=== PATIENT | female | born 1975 | race Caucasian/White ===

== ENCOUNTER 2016-07-12 21:04 | Emergency (ER) | payer MEDICAID ==
[~2016-07-12] VITALS: Ht 162.6 cm; Wt 81.6 kg
[2016-07-12] MEDS ORDERED: HALOPERIDOL LACTATE 5 MG/ML VIAL IM ONE ×2 (21:15→21:45)
[2016-07-12 21:20] VITALS: BP 117/70; PULSE 110; RESP 18; TEMP 98.2; O2SAT 97
--- NOTE | 2016-07-12 21:20 | NUR ---
Pt ambulatory from [facility] to bed 8. Pt agitated and yelling, but cooperative with some staff members. Security at bedside.
--- NOTE | 2016-07-12 21:20 | NUR ---
Patient wound was assessed uponed arrival and is bleeding profusely, I need to used a hand full of gauze and used pressure bandage. Bleeding is under control and will continue to monitor patient for bleeding.
--- NOTE | 2016-07-12 21:25 | NUR ---
Dr. Quispe at bedside to examine pt and discuss plan of care.
[2016-07-12] MEDS ORDERED: LORazepam 2 MG/ML VIAL (FOR ER USE) IVP ONE ×2 (21:30→22:15)
[2016-07-12] MEDS ORDERED: LIDOCAINE/EPI 1% 1:100000 20 ML VIAL IJ ONE (22:15)
[2016-07-12] MEDS ORDERED: DIPH-TET-PERTUS Vaccine 0.5 ML VIAL (ADACEL) I.M. ONE (22:15)
[2016-07-12] MEDS ORDERED: MORPHINE 4 MG/ML INJ. SYRINGE IVP ONE (22:15)
[2016-07-12] MEDS ORDERED: BACITRACIN 1 GM OINT TP ONE (22:15)
--- NOTE | 2016-07-12 23:15 | NUR ---
Dr. Quispe at bedside for lac repair.
--- NOTE | 2016-07-13 00:42 | NUR ---
Patient is sleeping and on the classroom monitor, NO S/s of distress will continue to monitor patient.
--- NOTE | 2016-07-13 02:11 | NUR ---
Patient is in deep sleep no s/s of distress, V/s within normal limits. I also tried to call the her family but both noumber on file no respond.
[2016-07-13 04:06] VITALS: BP 112/68; PULSE 76; RESP 16; TEMP 98.4; O2SAT 100
--- NOTE | 2016-07-13 04:06 | NUR ---
Patient given written and verbal discharge instructions and verbalizes understanding. ER MD discussed with patient the results and treatment provided. Patient in stable condition. ID arm band removed. IV catheter removed intact and dressing applied, no active bleeding. Patient educated on pain management and to follow up with PMD. Pain Scale 0/10. Opportunity for questions provided and answered.
== END 2016-07-13 04:06 | disposition home or self-care (01) ==
LOC: SED 21:04
DX: S01.81XA Laceration without foreign body of other part of head, initial encounter (principal); R45.1 Restlessness and agitation; F17.200 Nicotine dependence, unspecified, uncomplicated; W22.8XXA Striking against or struck by other objects, initial encounter; Y93.89 Activity, other specified; Y99.8 Other external cause status; Y92.89 Other specified places as the place of occurrence of the external cause
CPT/HCPCS: 12013; 96372; 96374; 96375; 96376; 99284; J1630; J2060; J2270; 90715

== ENCOUNTER 2016-07-27 07:58 | Emergency (ER) | payer MEDICAID ==
[~2016-07-27] VITALS: Ht 160 cm; Wt 81.6 kg
[2016-07-27 07:58] VITALS: BP 137/73; PULSE 80; RESP 18; TEMP 97.6; O2SAT 100
--- NOTE | 2016-07-27 07:58 | NUR ---
BROUGHT IN BY [employer], PLACED IN BED #4 AND TRIAGED. REPORT GIVEN TO LISA
--- NOTE | 2016-07-27 08:05 | NUR ---
Patient in stable condition, officer present, patient in handcuffs. Patient states that she is here because she ran out of her xanex. States took last xanex 0.5 mg on wednesday. States that she feels nervous. Denies any shortness of breath, chest pain, pressure or radiating pain of any kind. No other complaints/injuries per patient or noted.
--- NOTE | 2016-07-27 08:08 | NUR ---
Dr. Quispe at bedside examining patient.
--- NOTE | 2016-07-27 08:18 | NUR ---
Patient given written and verbal discharge instructions and verbalizes understanding. ER MD discussed with patient the results and treatment provided. Patient in stable condition. ID arm band removed. Rx of Atarax 25mg given. Patient educated on pain management and to follow up with PMD. Pain Scale 0. Opportunity for questions provided and answered.
[2016-07-27 08:23] VITALS: BP 135/70; PULSE 70; RESP 17; TEMP 97.4; O2SAT 100
== END 2016-07-27 08:23 ==
LOC: SED 07:58
DX: Z02.89 Encounter for other administrative examinations (principal); F41.9 Anxiety disorder, unspecified
CPT/HCPCS: 99284

== ENCOUNTER 2017-04-03 19:30 | Emergency (ER) | payer MEDICAID ==
[~2017-04-03] VITALS: Ht 160 cm; Wt 81.6 kg
[2017-04-03 19:30] VITALS: BP_SYST 118
[2017-04-03 21:07] LABS: BILIRUBIN,URINE NEGATIVE (NEGATIVE); BLOOD, URINE 3+ (NEGATIVE); CLARITY/URINE HAZY (CLEAR); COLOR,URINE YELLOW (YELLOW); GLUCOSE,URINE NEGATIVE (NEGATIVE); KETONES,URINE 1+ (NEGATIVE); NITRITE, URINE NEGATIVE (NEGATIVE); PH,URINE 5.5 (5.0-8.0); PROTEIN URINE 2+ (NEGATIVE)
[2017-04-03 21:08] LABS: LEUKOCYTE ESTERASE ,URINE 3+ (NEGATIVE)
[2017-04-03 21:09] LABS: BACTERIA,URINE MODERATE /HPF (None Seen); CALCIUM OXALATE CRYSTALS,UR 0-10 /HPF (None Seen); WBC,URINE 50-80 /HPF (0-3)
[2017-04-03 21:10] LABS: BARBITURATE, URINE NEGATIVE (NEG <=200); MUCUS,URINE None Seen /LPF (None Seen); URINE AMPHETAMINE POSITIVE (NEG <=500)
[2017-04-03 21:11] LABS: BENZODIAZEPINE, URINE POSITIVE (NEG <=150); CANNABINOID, URINE POSITIVE (NEG <=50); COCAINE, URINE NEGATIVE (NEG <=150); METHAMPHETAMINES SCREEN,URINE POSITIVE (NEG <=500); OPIATE, URINE NEGATIVE (NEG <=100); PHENCYCLIDINE SCREEN,URINE NEGATIVE (NEG <=25); UR TRICYCLIC ANTIDEPRESSANTS NEGATIVE (NEG <=300); URINE METHADONE NEGATIVE (NEG <=200); URINE OXYCODONE SCREEN NEGATIVE (NEG <=100); URINE PROPOXYPHENE SCREEN NEGATIVE (NEG <=300)
[2017-04-03] MEDS ORDERED: cefTRIAXone 1 GM in LIDOCAINE 1%, 20 ML MDV 2.1 ML IM ONE (22:30)
[2017-04-03 23:18] VITALS: BP_SYST 120
== END 2017-04-03 23:15 | disposition home or self-care (01) ==
LOC: SED 19:30
DX: G89.29 Other chronic pain (principal); M25.561 Pain in right knee; N39.0 Urinary tract infection, site not specified; L01.00 Impetigo, unspecified
CPT/HCPCS: 80307; 81000; 81025; 96372; 99284; J0696; J2001

== ENCOUNTER 2017-07-02 15:55 | Emergency (ER) | payer MEDICAID ==
[~2017-07-02] VITALS: Ht 160 cm; Wt 81.6 kg
[2017-07-02 16:09] VITALS: BP_SYST 136
[2017-07-02] MEDS ORDERED: KETOROLAC TROMETHAMINE 30 MG VIAL IM ONE (16:45)
[2017-07-02 17:18] VITALS: BP_SYST 119
== END 2017-07-02 17:18 | disposition home or self-care (01) ==
LOC: SED 15:55
DX: K02.9 Dental caries, unspecified (principal); F41.1 Generalized anxiety disorder; F20.9 Schizophrenia, unspecified; R03.0 Elevated blood-pressure reading, without diagnosis of hypertension; F17.200 Nicotine dependence, unspecified, uncomplicated
CPT/HCPCS: 96372; 99283; J1885

== ENCOUNTER 2018-04-25 15:40 | Emergency (ER) | payer MEDICAID ==
[~2018-04-25] VITALS: Ht 160 cm; Wt 81.6 kg
[2018-04-25 16:04] VITALS: BP_SYST 137
[2018-04-25] MEDS ORDERED: KETOROLAC TROMETHAMINE 60 MG/2 ML VIAL IM ONE (16:45)
[2018-04-25] MEDS ORDERED: cefTRIAXone 1 GM VIAL IM ONE (16:45)
[2018-04-25] MEDS ORDERED: LIDOCAINE 1% 10 MG/ML, 20 ML MDV INJ ONE (16:45)
[2018-04-25 17:30] VITALS: BP_SYST 130
[2018-04-25 20:29] LABS: CLARITY/URINE CLEAR (CLEAR); COLOR,URINE YELLOW (YELLOW); GLUCOSE,URINE NEGATIVE (NEGATIVE); KETONES,URINE TRACE (NEGATIVE); PH,URINE 5.5 (5.0-8.0); PROTEIN URINE 3+ (NEGATIVE)
[2018-04-25 20:30] LABS: BILIRUBIN,URINE NEGATIVE (NEGATIVE); BLOOD, URINE 3+ (NEGATIVE); LEUKOCYTE ESTERASE ,URINE NEGATIVE (NEGATIVE); NITRITE, URINE POSITIVE (NEGATIVE); UROBILINOGEN,URINE 0.2 (0.2-1.0)
[2018-04-25 20:32] LABS: BACTERIA,URINE None Seen /HPF (None Seen); RBC,URINE 50-80 /HPF (0-3); WBC,URINE 0-3 /HPF (0-3)
== END 2018-04-25 17:30 | disposition home or self-care (01) ==
LOC: SED 15:40
DX: K08.89 Other specified disorders of teeth and supporting structures (principal); N39.0 Urinary tract infection, site not specified; F17.210 Nicotine dependence, cigarettes, uncomplicated; R03.0 Elevated blood-pressure reading, without diagnosis of hypertension; F20.0 Paranoid schizophrenia; F31.9 Bipolar disorder, unspecified; Z71.6 Tobacco abuse counseling
CPT/HCPCS: 81000; 81025; 96372; 99283; J0696; J1885; J2001

== ENCOUNTER 2018-09-19 18:19 | Emergency (ER) | payer MEDICAID ==
[~2018-09-19] VITALS: Ht 160 cm; Wt 86.2 kg
--- NOTE | 2018-09-19 18:35 | NUR ---
Patient to ER bed 1 to gown for evaluation. Side rails up. Report given to Nish ORO.
[2018-09-19 18:39] VITALS: BP_SYST 125
--- NOTE | 2018-09-19 18:40 | NUR ---
Patient brought to ER by S ambulance, via gurney and 2 person team. Patient called 911 for paranoia and panic attack. Patient has complaint of pain to bottom right inside of mouth, bottom right teeth, pain 8/10. Patient states that she has a history of schizophrenia and has not been taking her medications for about a week. No other complaint or injury at this time.
--- NOTE | 2018-09-19 18:50 | NUR ---
DR WOOD at bedside for ER evaluation
[2018-09-19 19:10] LABS: ANION GAP 8 (5-15); CHLORIDE 103 mmol/L (98-107); CREATININE 0.72 mg/dL (0.55-1.30); GLUCOSE 102 mg/dL (70-99); POTASSIUM 3.7 mmol/L (3.5-5.1); SODIUM SERUM 138 mmol/L (136-145); UREA NITROGEN, BLOOD 14 mg/dL (8-21)
[2018-09-19 19:12] LABS: BASOPHILS % (AUTO) 0.6 % (0.0-2.0); EOSINOPHILS # (AUTO) 0.1 K/uL (0.0-0.4); EOSINOPHILS % (AUTO) 1.6 % (0.0-4.0); HEMATOCRIT 40.9 % (36-48); HEMOGLOBIN 13.9 g/dL (12.0-16.0); LYMPHOCYTES # (AUTO) 2.3 K/uL (1.0-5.5); LYMPHOCYTES % (AUTO) 30.2 % (20.5-51.5); MEAN CORPUSCULAR HEMOGLOBIN 30 pg (27-31); MEAN CORPUSCULAR HGB CONC 34 % (32-36); MEAN CORPUSCULAR VOLUME 89 fL (79.0-98.0); MONOCYTES # (AUTO) 0.6 K/uL (0.0-1.0); MONOCYTES % (AUTO) 7.5 % (1.7-9.3); NEUTROPHILS # (AUTO) 4.7 K/uL (1.8-7.7); NEUTROPHILS % (AUTO) 60.1 % (40.0-70.0); PLATELET COUNT (AUTO) 318 K/uL (130-430); RED BLOOD CELL COUNT(AUTO) 4.61 MIL/uL (4.2-6.2); RED CELL DISTRIBUTION WIDTH 14.1 % (9.0-15.0); WHITE BLOOD COUNT (AUTO) 7.8 K/uL (4.8-10.8)
[2018-09-19 19:16] LABS: ALANINE AMINOTRANSFERASE 15 U/L (12-78); ALBUMIN 3.6 g/dL (3.4-4.8); ASPARTATE AMINOTRANSFERASE 11 U/L (10-37); TOTAL BILIRUBIN 0.1 mg/dL (0.0-1.0)
[2018-09-19 19:18] LABS: ACETAMINOPHEN < 1 ug/mL (1-30); GFR AFRICAN AMERICAN 114 mL/min (>90)
[2018-09-19 20:48] VITALS: BP_SYST 120
--- NOTE | 2018-09-19 20:48 | NUR ---
Patient given written and verbal discharge instructions and verbalizes understanding. ER MD discussed with patient the results and treatment provided. Patient in stable condition. ID arm band removed. IV catheter removed intact and dressing applied, no active bleeding. Rx of Seroquel and Xanax given. Patient educated on pain management and to follow up with PMD. Pain Scale 0/10. Opportunity for questions provided and answered. Medication side effect fact sheet provided.
== END 2018-09-19 20:48 | disposition home or self-care (01) ==
LOC: SED 18:19
DX: Z76.0 Encounter for issue of repeat prescription (principal); R03.0 Elevated blood-pressure reading, without diagnosis of hypertension; F31.9 Bipolar disorder, unspecified; F20.0 Paranoid schizophrenia; F17.210 Nicotine dependence, cigarettes, uncomplicated
CPT/HCPCS: 36415; 71045; 80053; 85025; 93005; 99284; G0480; G0481

== ENCOUNTER → 2018-12-29 | Emergency (ER) | payer MEDICAID ==
[~2018-12-29] VITALS: Ht 160 cm; Wt 81.6 kg
[~2018-12-29] MED LIST: LORazepam 2 MG/ML VIAL (FOR ER USE) IM ONE
[2018-12-29 16:03] VITALS: BP_SYST 118
[2018-12-29 17:00] VITALS: BP_SYST 134
== END | disposition still patient (30) ==
LOC: SED 16:03
DX: Z76.0 Encounter for issue of repeat prescription (principal); F31.9 Bipolar disorder, unspecified; F20.0 Paranoid schizophrenia
CPT/HCPCS: 96372; 99283; J2060

== ENCOUNTER 2019-02-22 16:50 | Emergency (ER) | payer MEDICAID ==
[~2019-02-22] VITALS: Ht 157.5 cm; Wt 72.6 kg
[2019-02-22 16:50] VITALS: BP_SYST 120
--- NOTE | 2019-02-22 16:50 | NUR ---
BROUGHT IN BY [facility] AND TRIAGED, PT PLACED IN WAITING ROOM, VSS. AWAITING OPEN BED.
--- NOTE | 2019-02-22 18:05 | NUR ---
Called name in waiting room no response.
[2019-02-22 18:30] VITALS: BP_SYST 120
--- NOTE | 2019-02-22 18:47 | NUR ---
Patient to [facility] chair 1.
--- NOTE | 2019-02-22 18:48 | NUR ---
Elke Sierra [employer] at bedside examining patient.
--- NOTE | 2019-02-22 18:50 | NUR ---
Patient given written and verbal discharge instructions and verbalizes understanding. ER MD discussed with patient the results and treatment provided. Patient in stable condition. ID arm band removed. Rx of Seroquel and Ativan given. Patient educated on pain management and to follow up with PMD. Pain Scale 0/10.Opportunity for questions provided and answered. Medication side effect fact sheet provided.
== END 2019-02-22 18:49 | disposition home or self-care (01) ==
LOC: SED 16:50
DX: Z76.0 Encounter for issue of repeat prescription (principal); F41.9 Anxiety disorder, unspecified; F31.9 Bipolar disorder, unspecified
CPT/HCPCS: 99283

== ENCOUNTER 2019-04-17 18:05 | Emergency (ER) | payer MEDICAID ==
[~2019-04-17] VITALS: Ht 160 cm; Wt 81.6 kg
[2019-04-17 18:20] VITALS: BP_SYST 110
[2019-04-17] MEDS ORDERED: AMOXICILLIN 500 MG CAPSULE PO ONE (19:15)
[2019-04-17 19:40] VITALS: BP_SYST 110
== END 2019-04-17 19:40 | disposition home or self-care (01) ==
LOC: SED 18:05
DX: F41.9 Anxiety disorder, unspecified (principal); J02.0 Streptococcal pharyngitis; F31.9 Bipolar disorder, unspecified; F20.0 Paranoid schizophrenia; F12.90 Cannabis use, unspecified, uncomplicated; F17.210 Nicotine dependence, cigarettes, uncomplicated; Z76.0 Encounter for issue of repeat prescription
CPT/HCPCS: 99284

== ENCOUNTER 2019-05-15 17:10 | Emergency (ER) | payer MEDICAID ==
[~2019-05-15] VITALS: Ht 160 cm; Wt 81.6 kg
[2019-05-15 17:26] VITALS: BP_SYST 114
--- NOTE | 2019-05-15 17:47 | NUR ---
Patient to ER bed 8 to gown for evaluation. Side rails up. Report given to Abigail ORO.
--- NOTE | 2019-05-15 17:50 | NUR ---
Pt brought by self , A&Ox4, pt c/o L shoulder pain 12/07 , denie trauma, skin pink and warm, cap refill <3, VSS.
--- NOTE | 2019-05-15 18:00 | NUR ---
Isela East at [facility] examining patient
--- NOTE | 2019-05-15 18:30 | NUR ---
Patient given written and verbal discharge instructions and verbalizes understanding. ER MD discussed with patient the results and treatment provided. Patient in stable condition. ID arm band removed. Rx of Ibuprofen and Seroquel given. Patient educated on pain management and to follow up with PMD. Pain Scale 2/10 . Opportunity for questions provided and answered. Medication side effect fact sheet provided.
[2019-05-15 18:31] VITALS: BP_SYST 114
== END 2019-05-15 18:31 | disposition home or self-care (01) ==
LOC: SED 17:10
DX: M25.512 Pain in left shoulder (principal); F31.9 Bipolar disorder, unspecified; F41.9 Anxiety disorder, unspecified; F20.0 Paranoid schizophrenia; Z76.0 Encounter for issue of repeat prescription
CPT/HCPCS: 99283

== ENCOUNTER 2019-08-20 14:02 | Emergency (ER) | payer MEDICAID ==
[~2019-08-20] VITALS: Ht 160 cm; Wt 77.1 kg
[2019-08-20] MEDS ORDERED: QUET400T PO (14:22)
[2019-08-20 14:23] VITALS: BP_SYST 133
[2019-08-20] MEDS ORDERED: ALPR1TAB2 PO (14:23)
[2019-08-20 14:35] LABS: BASOPHILS # (AUTO) 0.1 K/uL (0.0-0.2); EOSINOPHILS # (AUTO) 0.1 K/uL (0.0-0.4); EOSINOPHILS % (AUTO) 2.1 % (0.0-4.0); HEMATOCRIT 38.7 % (36-48); HEMOGLOBIN 13.1 g/dL (12.0-16.0); LYMPHOCYTES # (AUTO) 2.3 K/uL (1.0-5.5); LYMPHOCYTES % (AUTO) 33.1 % (20.5-51.5); MEAN CORPUSCULAR HEMOGLOBIN 30 pg (27-31); MEAN CORPUSCULAR HGB CONC 34 % (32-36); MEAN CORPUSCULAR VOLUME 89 fL (79.0-98.0); MONOCYTES # (AUTO) 0.6 K/uL (0.0-1.0); NEUTROPHILS # (AUTO) 3.8 K/uL (1.8-7.7); NEUTROPHILS % (AUTO) 54.8 % (40.0-70.0); PLATELET COUNT (AUTO) 267 K/uL (130-430); RED BLOOD CELL COUNT(AUTO) 4.33 MIL/uL (4.2-6.2); RED CELL DISTRIBUTION WIDTH 13.7 % (9.0-15.0)
[2019-08-20 14:46] LABS: ANION GAP 8 (5-15); CALCIUM 8.8 mg/dL (8.4-11.0); CHLORIDE 103 mmol/L (98-107); CREATININE 0.74 mg/dL (0.55-1.30); GLUCOSE 92 mg/dL (70-99); POTASSIUM 3.4 mmol/L (3.5-5.1); SODIUM SERUM 139 mmol/L (136-145); UREA NITROGEN, BLOOD 17 mg/dL (8-21)
[2019-08-20 14:50] LABS: ACETAMINOPHEN < 1 ug/mL (1-30); ALANINE AMINOTRANSFERASE 20 U/L (12-78); ALBUMIN 3.7 g/dL (3.4-4.8); ALCOHOL, BLOOD 77 mg/dL (<10); ASPARTATE AMINOTRANSFERASE 11 U/L (10-37); CHOLESTEROL 166 mg/dL (<200); GFR AFRICAN AMERICAN 110 mL/min (>90); HDL CHOLESTEROL 54 mg/dL (>55); LDL CHOLESTEROL 91 mg/dL (<100); TOTAL BILIRUBIN 0.3 mg/dL (0.0-1.0); TRIGLYCERIDES 91 mg/dL (30-150)
[2019-08-20] MEDS ORDERED: LORazepam 1 MG TABLET PO ONE (15:15)
[2019-08-20 15:37] LABS: BILIRUBIN,URINE NEGATIVE (NEGATIVE); BLOOD, URINE 2+ (NEGATIVE); COLOR,URINE YELLOW (YELLOW); GLUCOSE,URINE NEGATIVE (NEGATIVE); KETONES,URINE NEGATIVE (NEGATIVE); NITRITE, URINE NEGATIVE (NEGATIVE); PROTEIN URINE TRACE (NEGATIVE); UROBILINOGEN,URINE 0.2 (0.2-1.0)
[2019-08-20 15:45] LABS: CLARITY/URINE HAZY (CLEAR)
[2019-08-20 15:46] LABS: LEUKOCYTE ESTERASE ,URINE 1+ (NEGATIVE)
[2019-08-20 15:47] LABS: BACTERIA,URINE FEW /HPF (None Seen)
[2019-08-20 15:48] LABS: MUCUS,URINE None Seen /LPF (None Seen)
[2019-08-20 15:52] LABS: BARBITURATE, URINE NEGATIVE (NEG <=200); BENZODIAZEPINE, URINE POSITIVE (NEG <=150); METHAMPHETAMINES SCREEN,URINE NEGATIVE (NEG <=500); URINE AMPHETAMINE POSITIVE (NEG <=500); URINE METHADONE NEGATIVE (NEG <=200)
[2019-08-20 15:53] LABS: CANNABINOID, URINE POSITIVE (NEG <=50); COCAINE, URINE NEGATIVE (NEG <=150); OPIATE, URINE NEGATIVE (NEG <=100); PHENCYCLIDINE SCREEN,URINE NEGATIVE (NEG <=25); UR TRICYCLIC ANTIDEPRESSANTS NEGATIVE (NEG <=300); URINE OXYCODONE SCREEN NEGATIVE (NEG <=100); URINE PROPOXYPHENE SCREEN NEGATIVE (NEG <=300)
[2019-08-20 16:16] VITALS: BP_SYST 126
== END 2019-08-20 16:16 | disposition home or self-care (01) ==
LOC: SED 14:02
DX: F23 Brief psychotic disorder (principal); Z76.0 Encounter for issue of repeat prescription; F15.10 Other stimulant abuse, uncomplicated; F19.10 Other psychoactive substance abuse, uncomplicated; F10.10 Alcohol abuse, uncomplicated; Z59.0 Homelessness; Y90.3 Blood alcohol level of 60-79 mg/100 ml
CPT/HCPCS: 36415; 80053; 80061; 80307; 81000; 83036; 85025; 87081; 87086; 99283; G0480; G0481; G0482

== ENCOUNTER 2019-09-28 16:50 | Emergency (ER) | payer MEDICAID ==
[~2019-09-28] VITALS: Ht 160 cm; Wt 77.1 kg
[~2019-09-28 16:50] MED LIST changes: +ALPR1TAB2 PO; -LORazepam 2 MG/ML VIAL (FOR ER USE) IM ONE; +QUET400T PO
[2019-09-28 17:17] VITALS: BP_SYST 119
[2019-09-28] MEDS ORDERED: QUET300T2 PO (17:17)
[2019-09-28 17:45] VITALS: BP_SYST 121
== END 2019-09-28 17:44 | disposition home or self-care (01) ==
LOC: SED 16:50
DX: K08.89 Other specified disorders of teeth and supporting structures (principal); F41.9 Anxiety disorder, unspecified
CPT/HCPCS: 99283

== ENCOUNTER 2019-09-28 19:33 | Emergency (ER) | payer MEDICAID ==
[~2019-09-28] VITALS: Ht 167.6 cm; Wt 77.1 kg
[~2019-09-28 19:33] MED LIST changes: +QUET300T2 PO
[2019-09-28 19:35] VITALS: BP_SYST 129
[2019-09-28] MEDS ORDERED: QUEtiapine FUMARATE 100 MG TABLET PO SCH (21:00)
[2019-09-28 21:30] VITALS: BP_SYST 129
== END 2019-09-28 21:30 | disposition home or self-care (01) ==
LOC: SED 19:33
DX: Z76.0 Encounter for issue of repeat prescription (principal); F41.9 Anxiety disorder, unspecified
CPT/HCPCS: 99281; 99283

== ENCOUNTER 2019-10-31 19:40 | Emergency (ER) | payer MEDICAID ==
[~2019-10-31] VITALS: Ht 160 cm; Wt 77.1 kg
[~2019-10-31 19:40] MED LIST changes: -QUET400T PO
[2019-10-31 19:44] VITALS: BP_SYST 123
[2019-10-31] MEDS ORDERED: LORazepam 1 MG TABLET PO ONE (20:00)
[2019-10-31 20:20] VITALS: BP_SYST 123
[2019-10-31] MEDS ORDERED: QUEtiapine FUMARATE 100 MG TABLET PO SCH (21:00)
== END 2019-10-31 20:20 | disposition home or self-care (01) ==
LOC: SED 19:40
DX: F41.9 Anxiety disorder, unspecified (principal); F20.9 Schizophrenia, unspecified; F32.9 Major depressive disorder, single episode, unspecified; F12.90 Cannabis use, unspecified, uncomplicated
CPT/HCPCS: 99283

== ENCOUNTER 2020-08-24 22:46 | Emergency (ER) | payer MEDICAID ==
[~2020-08-24] VITALS: Ht 154.9 cm; Wt 81.6 kg
[2020-08-24 22:51] VITALS: BP_SYST 136
[2020-08-24] MEDS ORDERED: ALPR1TAB2 PO (23:13)
[2020-08-24] MEDS ORDERED: QUET300T2 PO (23:13)
[2020-08-24] MEDS ORDERED: QUEtiapine FUMARATE 100 MG TABLET PO ONE (23:45)
[2020-08-24] MEDS ORDERED: ALPRAZolam 0.25 MG TABLET PO ONE (23:45)
== END 2020-08-25 00:09 | disposition home or self-care (01) ==
LOC: SED 22:46
DX: F41.9 Anxiety disorder, unspecified (principal); Z76.0 Encounter for issue of repeat prescription
CPT/HCPCS: 99283

== ENCOUNTER 2020-08-25 21:53 | Emergency (ER) | payer MEDICAID ==
[~2020-08-25] VITALS: Ht 154.9 cm; Wt 81.6 kg
[2020-08-25 22:00] VITALS: BP_SYST 136
--- NOTE | 2020-08-25 22:00 | NUR ---
Patient triaged and placed in waiting room. VSS and patient appears in no acute distress at this time. Accompanied by SELF, awaiting available bed, and MD notified of need for MSE.
--- NOTE | 2020-08-25 22:05 | NUR ---
PT A&O X4 C/O RX REFILL. STATES SHE WAS UNABLE TO CURER ACID DRUM PRESCRIPTIONS FROM LAST NIGHT FROM [facility].
--- NOTE | 2020-08-25 22:07 | NUR ---
ER Dr. VANN at bedside examining patient.
[2020-08-25 22:59] VITALS: BP_SYST 129
--- NOTE | 2020-08-25 22:59 | NUR ---
Patient given written and verbal discharge instructions and verbalizes understanding. ER MD discussed with patient the results and treatment provided. Patient in stable condition. ID arm band removed. NO IV Rx of SEROQUEL given. Patient educated on pain management and to follow up with PMD. Pain Scale 0/10. Opportunity for questions provided and answered. Medication side effect fact sheet provided.
== END 2020-08-25 22:59 | disposition home or self-care (01) ==
LOC: SED 21:53
DX: F20.9 Schizophrenia, unspecified (principal); Z76.0 Encounter for issue of repeat prescription; F31.9 Bipolar disorder, unspecified; F41.9 Anxiety disorder, unspecified; Z79.899 Other long term (current) drug therapy
CPT/HCPCS: 99281

== ENCOUNTER 2020-11-12 19:36 | Emergency (ER) | payer MEDICAID ==
[~2020-11-12] VITALS: Ht 165.1 cm; Wt 88.5 kg
[2020-11-12 20:51] VITALS: BP_SYST 136
[2020-11-12] MEDS ORDERED: QUET300T2 PO (21:07)
[2020-11-12] MEDS ORDERED: QUEtiapine FUMARATE 100 MG TABLET PO ONE (21:45)
[2020-11-12] MEDS ORDERED: QUEtiapine FUMARATE 100 MG TABLET ONE (21:59)
[2020-11-12 22:00] VITALS: BP_SYST 119
== END 2020-11-12 22:00 | disposition home or self-care (01) ==
LOC: SED 19:36
DX: F41.9 Anxiety disorder, unspecified (principal); F20.0 Paranoid schizophrenia; F31.9 Bipolar disorder, unspecified; Z76.0 Encounter for issue of repeat prescription; Z79.899 Other long term (current) drug therapy
CPT/HCPCS: 99283

== ENCOUNTER 2021-06-03 15:03 | Emergency (ER) | payer MEDICAID, SELFPAY ==
[~2021-06-03] VITALS: Ht 129.5 cm; Wt 81.6 kg
--- NOTE | 2021-06-03 15:03 | NUR ---
Patient triaged and placed in waiting room. VSS and patient appears in no acute distress at this time. Accompanied by self , awaiting available bed, and MD notified of need for MSE.
[2021-06-03 16:40] VITALS: BP_SYST 148
--- NOTE | 2021-06-03 23:31 | NUR ---
Patient moved to triage room. Patient brought complaining of extreme headache and requesting refill on seroquel and xanax. No acute distress noted Pain 10/10, patient sitting calmly in bed. Patient has scarf wrapped around head.
--- NOTE | 2021-06-03 23:34 | NUR ---
ER Dr. Ontiveros at bedside examining patient.
[2021-06-03] MEDS ORDERED: QUEtiapine FUMARATE 100 MG TABLET PO ONE (23:45)
[2021-06-04] MEDS ORDERED: QUEtiapine FUMARATE 100 MG TABLET ONE (00:05)
[2021-06-04] MEDS ORDERED: QUET200T PO (00:32)
[2021-06-04 00:36] VITALS: BP_SYST 132
--- NOTE | 2021-06-04 00:36 | NUR ---
Patient given written and verbal discharge instructions and verbalizes understanding. ER MD discussed with patient the results and treatment provided. Patient in stable condition. ID arm band removed. Rx of seroquel given. Patient educated on pain management and to follow up with PMD. Pain Scale 0/10 Opportunity for questions provided and answered. Medication side effect fact sheet provided.
== END 2021-06-04 00:36 | disposition home or self-care (01) ==
LOC: SED 15:03
DX: F20.9 Schizophrenia, unspecified (principal); R51.9 Headache, unspecified; F41.9 Anxiety disorder, unspecified
CPT/HCPCS: 70450-TC; 76376; 99284

== ENCOUNTER 2021-08-23 07:58 | Inpatient (IN) | payer MEDICAID, SELFPAY ==
[~2021-08-23] VITALS: Ht 172.7 cm; Wt 89.1 kg
[~2021-08-23 07:58] MED LIST changes: +QUET200T PO
[2021-08-23 08:00] VITALS: BP_SYST 107
[2021-08-23 09:26] LABS: BASOPHILS % (AUTO) 0.4 % (0.0-2.0); EOSINOPHILS # (AUTO) 0.1 K/uL (0.0-0.4); EOSINOPHILS % (AUTO) 1.1 % (0.0-4.0); HEMATOCRIT 38.6 % (36-48); HEMOGLOBIN 12.8 g/dL (12.0-16.0); LYMPHOCYTES # (AUTO) 1.6 K/uL (1.0-5.5); LYMPHOCYTES % (AUTO) 22.4 % (20.5-51.5); MEAN CORPUSCULAR HEMOGLOBIN 28 pg (27-31); MEAN CORPUSCULAR HGB CONC 33 % (32-36); MEAN CORPUSCULAR VOLUME 84 fL (79.0-98.0); MONOCYTES # (AUTO) 0.6 K/uL (0.0-1.0); MONOCYTES % (AUTO) 8.8 % (1.7-9.3); NEUTROPHILS # (AUTO) 4.9 K/uL (1.8-7.7); NEUTROPHILS % (AUTO) 67.3 % (40.0-70.0); PLATELET COUNT (AUTO) 241 K/uL (130-430); RED BLOOD CELL COUNT(AUTO) 4.59 MIL/uL (4.2-6.2); RED CELL DISTRIBUTION WIDTH 13.5 % (9.0-15.0); WHITE BLOOD COUNT (AUTO) 7.2 K/uL (4.8-10.8)
[2021-08-23 10:03] LABS: ANION GAP 8 (5-15); CALCIUM 9.5 mg/dL (8.4-11.0); CHLORIDE 103 mmol/L (98-107); CREATININE 0.62 mg/dL (0.55-1.30); GLUCOSE 99 mg/dL (70-99); POTASSIUM 3.4 mmol/L (3.5-5.1); SODIUM SERUM 139 mmol/L (136-145); UREA NITROGEN, BLOOD 14 mg/dL (8-21)
[2021-08-23 10:08] LABS: GFR AFRICAN AMERICAN 134 mL/min (>90)
[2021-08-23 10:18] LABS: ALANINE AMINOTRANSFERASE 12 U/L (12-78); ALBUMIN 3.8 g/dL (3.4-4.8); ASPARTATE AMINOTRANSFERASE 8 U/L (10-37); THYROID STIMULATING HORMONE 1.28 uIu/mL (0.36-3.74)
[2021-08-23 10:21] LABS: HCG,QUANTITATIVE 2 mIU/ML (0-6)
[2021-08-23 10:22] LABS: ALCOHOL, BLOOD 1 mg/dL (<10); TOTAL BILIRUBIN < 0.1 mg/dL (0.0-1.0)
[2021-08-23 12:50] LABS: BILIRUBIN,URINE NEGATIVE (NEGATIVE); BLOOD, URINE NEGATIVE (NEGATIVE); CLARITY/URINE CLEAR (CLEAR); COLOR,URINE YELLOW (YELLOW); GLUCOSE,URINE NEGATIVE (NEGATIVE); KETONES,URINE NEGATIVE (NEGATIVE); LEUKOCYTE ESTERASE ,URINE NEGATIVE (NEGATIVE); NITRITE, URINE NEGATIVE (NEGATIVE); PROTEIN URINE NEGATIVE (NEGATIVE); UROBILINOGEN,URINE 0.2 (0.2-1.0)
[2021-08-23 13:14] LABS: BARBITURATE, URINE NEGATIVE (NEG <=200); BENZODIAZEPINE, URINE NEGATIVE (NEG <=150); CANNABINOID, URINE POSITIVE (NEG <=50); COCAINE, URINE NEGATIVE (NEG <=150); METHAMPHETAMINES SCREEN,URINE POSITIVE (NEG <=500); OPIATE, URINE NEGATIVE (NEG <=100); PHENCYCLIDINE SCREEN,URINE NEGATIVE (NEG <=25); UR TRICYCLIC ANTIDEPRESSANTS POSITIVE (NEG <=300); URINE AMPHETAMINE POSITIVE (NEG <=500); URINE METHADONE NEGATIVE (NEG <=200); URINE OXYCODONE SCREEN NEGATIVE (NEG <=100); URINE PROPOXYPHENE SCREEN NEGATIVE (NEG <=300)
[2021-08-23] MEDS ORDERED: NACL 0.9% 1,000 ML IV ONE (16:45)
[2021-08-23 18:33] LABS: PROTHROMBIN TIME 10.2 SECS (9.5-12.5)
[2021-08-23] MEDS: D5/0.45 NS 1,000 ML IV SCH (19:07)
[2021-08-23 23:00] VITALS: BP_SYST 135
[2021-08-24 00:24] VITALS: BP_SYST 114
[2021-08-24 07:25] LABS: BASOPHILS % (AUTO) 0.5 % (0.0-2.0); EOSINOPHILS # (AUTO) 0.1 K/uL (0.0-0.4); EOSINOPHILS % (AUTO) 2.1 % (0.0-4.0); HEMATOCRIT 36.8 % (36-48); HEMOGLOBIN 12.4 g/dL (12.0-16.0); LYMPHOCYTES # (AUTO) 1.5 K/uL (1.0-5.5); LYMPHOCYTES % (AUTO) 26.3 % (20.5-51.5); MEAN CORPUSCULAR HEMOGLOBIN 28 pg (27-31); MEAN CORPUSCULAR HGB CONC 34 % (32-36); MEAN CORPUSCULAR VOLUME 84 fL (79.0-98.0); MONOCYTES # (AUTO) 0.5 K/uL (0.0-1.0); MONOCYTES % (AUTO) 8.5 % (1.7-9.3); NEUTROPHILS # (AUTO) 3.6 K/uL (1.8-7.7); NEUTROPHILS % (AUTO) 62.6 % (40.0-70.0); PLATELET COUNT (AUTO) 235 K/uL (130-430); RED BLOOD CELL COUNT(AUTO) 4.39 MIL/uL (4.2-6.2); RED CELL DISTRIBUTION WIDTH 13.7 % (9.0-15.0); WHITE BLOOD COUNT (AUTO) 5.7 K/uL (4.8-10.8)
[2021-08-24 08:00] VITALS: BP_SYST 119
[2021-08-24 08:33] LABS: CALCIUM 8.3 mg/dL (8.4-11.0); CREATININE 0.6 mg/dL (0.55-1.30)
[2021-08-24 09:24] LABS: POTASSIUM 3.5 mmol/L (3.5-5.1); TOTAL BILIRUBIN 0.3 mg/dL (0.0-1.0)
[2021-08-24 12:00] VITALS: BP_SYST 117
[2021-08-24] MEDS: D5/0.45 NS 1,000 ML IV SCH (13:42)
[2021-08-24 16:00] VITALS: BP_SYST 133
[2021-08-24] MEDS ORDERED: ACETAMINOPHEN 325 MG TABLET PO PRN ×2 (18:45)
[2021-08-24] MEDS: QUEtiapine FUMARATE 100 MG TABLET PO SCH (20:36)
[2021-08-25] MEDS: ONDANSETRON HCL 4 MG/2 ML VIAL IM PRN ×4 (00:17→20:16)
[2021-08-25 04:20] VITALS: BP_SYST 118
[2021-08-25] MEDS: D5/0.45 NS 1,000 ML IV SCH (08:06)
[2021-08-25] MEDS: QUEtiapine FUMARATE 100 MG TABLET PO SCH ×2 (08:11→20:17)
[2021-08-25 09:00] VITALS: BP_SYST 128
[2021-08-25 11:39] VITALS: BP_SYST 119
[2021-08-25 15:30] VITALS: BP_SYST 129
[2021-08-26 01:54] VITALS: BP_SYST 140
[2021-08-26 02:34] VITALS: BP_SYST 140
[2021-08-26] MEDS: D5/0.45 NS 1,000 ML IV SCH (06:54)
[2021-08-26 08:00] VITALS: BP_SYST 130
[2021-08-26] MEDS: ONDANSETRON HCL 4 MG/2 ML VIAL IM PRN (08:07)
[2021-08-26] MEDS: QUEtiapine FUMARATE 100 MG TABLET PO SCH (08:07)
[2021-08-26 11:09] VITALS: BP_SYST 122
== END 2021-08-26 12:50 | disposition left against medical advice (07) | DRG 861 ==
LOC: SED 07:58 → STU 16:43 → SMU 08-24 23:03
PROVIDERS: ADMIT Internal Medicine; ATTEND Internal Medicine
DX: R41.82 Altered mental status, unspecified (principal); F20.0 Paranoid schizophrenia; F31.60 Bipolar disorder, current episode mixed, unspecified; F15.129 Other stimulant abuse with intoxication, unspecified; Z53.29 Procedure and treatment not carried out because of patient's decision for other reasons; Z20.822 Contact with and (suspected) exposure to COVID-19; T43.596A Underdosing of other antipsychotics and neuroleptics, initial encounter; F12.129 Cannabis abuse with intoxication, unspecified; F41.9 Anxiety disorder, unspecified; Y92.89 Other specified places as the place of occurrence of the external cause; Z59.00 Homelessness unspecified
CPT/HCPCS: 36415; 70450-TC; 71045; 72125-TC; 76376; 80053; 80307; 81003; 84443; 84702; 85025; 85610-TC; 85730-TC; 93005; 99285; G0378; G0482; J2405

== ENCOUNTER 2022-01-05 22:15 | Emergency (ER) | payer MEDICAID ==
[2022-01-06] MEDS ORDERED: QUET300T2 PO (00:38)
[2022-01-06] MEDS ORDERED: QUEtiapine FUMARATE 100 MG TABLET PO ONE (00:45)
[2022-01-06] MEDS ORDERED: QUEtiapine FUMARATE 100 MG TABLET ONE (01:46)
== END 2022-01-06 02:03 | disposition home or self-care (01) ==
LOC: SED 22:15
DX: Z76.0 Encounter for issue of repeat prescription (principal); F99 Mental disorder, not otherwise specified; Z79.899 Other long term (current) drug therapy
CPT/HCPCS: 99281